=== PATIENT | female | born 1945 | race Caucasian/White ===

== ENCOUNTER 2024-11-28 09:11 | Emergency (ER) | payer BC ==
[~2024-11-28] VITALS: Ht 165.1 cm; Wt 63.5 kg
[2024-11-28] MEDS ORDERED: TDAP [DIPH/PERTUSSIS/TET] 0.5 ML VIAL IM ONE (09:28)
[2024-11-28] MEDS: TDAP [DIPH/PERTUSSIS/TET] 0.5 ML VIAL IM ONE (09:43)
[2024-11-28 10:17] LABS: BASOPHILS # (AUTO) 0.1 K/uL (0.0-0.2); BASOPHILS % (AUTO) 0.6 % (0.0-2.0); EOSINOPHILS % (AUTO) 0.4 % (0.0-6.0); HEMATOCRIT 41 % (33-45); HEMOGLOBIN 14.5 g/dL (11.5-14.8); LYMPHOCYTES # (AUTO) 2.1 K/uL (0.8-4.8); LYMPHOCYTES % (AUTO) 24.9 % (20.0-44.0); MEAN CORPUSCULAR HEMOGLOBIN 33 PG (26.0-33.0); MEAN CORPUSCULAR HGB CONC 35 g/dl (31.0-36.0); MEAN CORPUSCULAR VOLUME 94 fL (82-100); MONOCYTES # (AUTO) 0.8 K/uL (0.1-1.30); MONOCYTES % (AUTO) 9.4 % (2.0-12.0); NEUTROPHILS # (AUTO) 5.3 K/uL (1.8-8.9); NEUTROPHILS % (AUTO) 64.7 % (43.0-81.0); PLATELET COUNT (AUTO) 271 K/uL (150-450); RED CELL DISTRIBUTION WIDTH 15.2 % (11.5-15.0); WHITE BLOOD COUNT (AUTO) 8.2 K/uL (4.3-11.0)
[2024-11-28 10:30] LABS: CALCIUM, SERUM 9.8 mg/dL (8.5-10.1); CARBON DIOXIDE 24 mmol/L (21-32); CHLORIDE 102 mmol/L (98-107); CREATININE 0.6 mg/dL (0.6-1.3); GLUCOSE 79 mg/dL (74-106); POTASSIUM 3.5 mmol/L (3.5-5.1); SODIUM SERUM 141 mmol/L (136-145); UREA NITROGEN, BLOOD 15 mg/dL (7-18)
[2024-11-28] MEDS ORDERED: KETO10TA2 PO (12:01)
[2024-11-28] MEDS ORDERED: KETOROLAC TROMETHAMINE INJ 30 MG/ML VIAL ONE (12:04)
[2024-11-28] MEDS: KETOROLAC TROMETHAMINE INJ 30 MG/ML VIAL IV ONE (12:10)
[2024-11-28 12:33] VITALS: BP 122/72; TEMP 98; O2SAT 98
== END 2024-11-28 12:33 | disposition home or self-care (01) ==
LOC: ER 09:13
DX: S01.81XA Laceration without foreign body of other part of head, initial encounter (principal); G44.309 Post-traumatic headache, unspecified, not intractable; I10 Essential (primary) hypertension; M54.2 Cervicalgia; R42 Dizziness and giddiness; R55 Syncope and collapse; W18.39XA Other fall on same level, initial encounter; Y93.89 Activity, other specified; Y92.89 Other specified places as the place of occurrence of the external cause; Y99.8 Other external cause status
CPT/HCPCS: 99285; 72125; 96374; 71045; 12014; 90471; 90715; 70450; 85025; 80048; 36415; 84484; 83880; 93005; J1885

== ENCOUNTER → 2024-12-07 | Emergency (ER) | payer BC, MEDICARE ==
[~2024-12-07] VITALS: Ht 165.1 cm; Wt 63.5 kg
[~2024-12-07] MED LIST: KETO10TA2 PO
[2024-12-07 18:41] VITALS: BP 126/73; TEMP 98.1; O2SAT 99
== END | disposition home or self-care (01) ==
LOC: ER 18:19
DX: S01.81XD Laceration without foreign body of other part of head, subsequent encounter (principal); I10 Essential (primary) hypertension; Z48.02 Encounter for removal of sutures; X58.XXXD Exposure to other specified factors, subsequent encounter